=== PATIENT | male | born 1995 | race Caucasian/White ===

== ENCOUNTER 2020-10-04 11:37 | Emergency (ER) | payer MEDICAID ==
[~2020-10-04] VITALS: Ht 172.7 cm; Wt 68.0 kg
[2020-10-04 11:50] VITALS: BP 134/87
[2020-10-04 12:51] LABS: CLARITY URINE CLEAR (CLEAR); COLOR URINE YELLOW (YELLOW); KETONES URINE NEGATIVE (NEGATIVE); LEUKOCYTE ESTERASE URINE NEGATIVE (NEGATIVE); NITRITE URINE NEGATIVE (NEGATIVE); OCCULT BLOOD URINE NEGATIVE (NEGATIVE); PH URINE 5.5 (4.5-8.0); PROTEIN URINE 1+ (NEGATIVE); SPECIFIC GRAVITY URINE 1.018 (1.005-1.030); UROBILINOGEN URINE 0.2 E.U./dL (0.2-1.0)
== END 2020-10-04 13:46 | disposition home or self-care (01) ==
LOC: ER 11:37
DX: R35.0 Frequency of micturition (principal)
CPT/HCPCS: 81003; 99283